=== PATIENT | female | born 1945 | race Caucasian/White ===

== ENCOUNTER 2017-11-02 14:23 | Emergency (ER) | payer MEDICARE, OTHER ==
[~2017-11-02] VITALS: Ht 162.6 cm; Wt 68.2 kg
[2017-11-02 14:31] VITALS: Ht 162.6 cm; Wt 68.2 kg
[2017-11-02] MEDS ORDERED: SYNTHROID100 MCG PO (14:32)
[2017-11-02] MEDS ORDERED: BAYER CHEWABLE81 MG PO (14:32)
[2017-11-02 15:16] LABS: BASOPHILS 0.4 % (0-2); EOSINOPHILS 2.6 % (0-7); HEMATOCRIT 38.6 % (36.0-48.0); HEMOGLOBIN 12.7 g/dL (12-16); IMMATURE GRANULOCYTES 0.1 % (0-5); LYMPHOCYTES 15.9 % (15-50); MCH 28.5 pg (26.0-34.0); MCHC 32.9 g/dL (31.0-37.0); MCV 86.5 fL (80.0-100.0); MEAN PLATELET VOLUME 9.1 fL (7.4-10.4); MONOCYTES 6.5 % (2-11); NEUTROPHILS 74.5 % (40-80); PLATELET COUNT 226 10x3/uL (130-400); RBC 4.46 10x6/uL (4.00-5.40); RDW 13.4 % (11.5-14.5); WBC 7.2 10x3/uL (4.8-10.8)
[2017-11-02 15:35] LABS: ALBUMIN 3.7 g/dL (3.4-5.0); ANION GAP 10.5 mmol/L (8-16); BILIRUBIN - TOTAL 0.41 mg/dL (0.2-1.3); CALCIUM 9.2 mg/dL (8.5-10.1); CARBON DIOXIDE 29.3 mmol/L (21.0-32.0); CREATININE - SERUM 0.9 mg/dL (0.6-1.3); POTASSIUM - SERUM 3.8 mmol/L (3.5-5.1); PROTEIN - SERUM 6.6 g/dL (6.4-8.2)
[2017-11-02 19:47] VITALS: BP 146/52
== END 2017-11-02 17:37 | disposition home or self-care (01) ==
LOC: D.ER 14:23
PROVIDERS: Family Medicine
DX: R55 Syncope and collapse (principal); R11.2 Nausea with vomiting, unspecified; R42 Dizziness and giddiness; E07.9 Disorder of thyroid, unspecified; Z85.09 Personal history of malignant neoplasm of other digestive organs